=== PATIENT | female | born 1975 | race Caucasian/White ===

== ENCOUNTER 2023-02-01 11:34 | Emergency (ER) | payer BC, SELFPAY ==
[2023-02-01 12:02] VITALS: BP 129/98; PULSE 157; RESP 24; TEMP 38.9; O2SAT 94
--- NOTE | 2023-02-01 12:44 | ED.URI ---
HPI - URI/Sore Throat General Chief Complaint: Upper Respiratory Infection Stated Complaint: Fever and Shortness of Breath Time Seen by Provider: 02/01/23 12:44 Source: patient, family, RN notes reviewed and old records reviewed Mode of arrival: ambulatory Limitations: no limitations History of Present Illness HPI Narrative: 47 year old female who presents to [facility] care with complaints of being ill since Thursday with fevers up to 102.5F and some shortness of breath. Patient states she had some back spasms on in her thoracic area and some diarrhea since Thursday intermittently. Patient denies any sore throat or any nausea states though she can't eat that nothing tastes good. Patient has been tested in clinic for COVID and influenza with both tests negative. Patient has history of hypertension and has had Gall Bladder removed. Patient reports that dyspnea increases with exertion respirations 24 and no retractions noted. SAO2 94% on room air. Patient reports that she has not taken any Tylenol since before bed last night. MD elicited complaint: fever and other (shortness of breath) Onset (ago): day(s) (3) Treatments prior to arrival: acetaminophen Related Data Home Medications Medication Instructions Recorded Confirmed atenolol 50 mg tablet mg 02/01/23 spironolactone 50 mg tablet mg 02/01/23 Allergies Allergy/AdvReac Type Severity Reaction Status Date / Time No Known Allergies Allergy Verified 02/01/23 12:10 Review of Systems Review of Systems: CONSTITUTIONAL: Positive for malaise, chills, sweats, or fever. EYES: Denies visual changes, redness, or discharge. ENT: Reports rhinorrhea, congestion, sinus pain, no otalgia and no sore throat. CARDIOVASCULAR: Denies chest pain, palpitations, or edema. RESPIRATORY: Reports no cough.Reports dyspnea. GASTROINTESTINAL: Denies abdominal pain, nausea,states diarrhea, no vomiting SKIN: Denies rash or itching. MUSCULOSKELETAL: Denies myalgia. NEUROLOGIC: Denies headache. All systems reviewed & are unremarkable except as noted in HPI and below PMFSH Past Medical History Medical History (Updated 02/01/23 @ 13:20 by Sary Guillen NP) Hypertension Surgical History Surgical History (Updated 02/01/23 @ 13:15 by Sary Giullen NP) History of cholecystectomy Social History Social History (Updated 02/01/23 @ 13:16 by Sary Guillen NP) Smoking status: Never smoker Alcohol intake: never Substance use: never Living arrangements: with family Gender identity (if verbalized by the patient): Female Comments At time of signature, agree with nursing past medical, surgical, social and family history. There is no relevant family history pertinent to the presenting complaint Exam Narrative: GENERAL:ill-appearing, well-nourished, and in no acute distress. HEAD: Normocephalic EYES: PERRLA, conjunctivae clear ENT: Nares clear, turbinates edematous and erythematous, clear discharge. Mucous membranes moist. TM pearly bahena with dull light reflex bilaterally; no tragal tenderness. Oropharynx erythematous without lesions. Tonsils not enlarged and without exudate, no drooling, no hoarseness, no trismus, uvula midline. NECK: Supple. No lymphadenopathy CHEST: Decreased to auscultation, breath sounds equal. No wheezing, rhonchi, rales, or stridor. No respiratory distress, speaks in full sentences.reports dyspnea,SAO2 94% on room air HEART: Regular rate and rhythm. No murmur heard. SKIN: Warm, dry, no rash. NEURO: Alert and oriented x3. PSYCH: Normal mood and affect Course Course Emergency Course: Patient is aware of diagnosis, understands and agrees to treatment plan.? Anticipatory guidance given.? Patient agrees to follow-up as directed and is aware of reasons to seek care at the emergency department. Portions of this record may have been created with voice recognition software Level of Care: Express Care Visit Vital Sign
[2023-02-01 13:06] VITALS: TEMP 38.9
[2023-02-01] MEDS: ACETAMINOPHEN 325 MG TABLET 650 MG PO (13:06)
== END 2023-02-01 13:18 | disposition short-term general hospital (02) ==
PROVIDERS: Emergency Provider Registered Nurse
DX: R06.02 Shortness of breath (principal); R50.9 Fever, unspecified; Z20.822 Contact with and (suspected) exposure to COVID-19; I10 Essential (primary) hypertension
CPT/HCPCS: 87426; 87804; 99213; A9270; C9803; G0463